=== PATIENT | male | born 1965 | race African-American/Black ===

== ENCOUNTER 2016-11-06 03:35 | Emergency (ER) | payer OTHER ==
[~2016-11-06] VITALS: Ht 180.3 cm; Wt 117.0 kg
[~2016-11-06 03:35] MED LIST: ALBU2.5V13; ASPI-1079 PO; ATOR20TA PO; HYDR-2510; IBUP-1510 PO; METH-612 PO; QUIN20TA; SIMV20TA6 PO; TRAM150C26 PO
[2016-11-06] MEDS ORDERED: IBUPROFEN 600MG TABLET PO ONE (05:30)
[2016-11-06 05:33] VITALS: BP 172/90
== END 2016-11-06 06:08 | disposition home or self-care (01) ==
LOC: ER 03:35
DX: H60.8X1 Other otitis externa, right ear (principal); J44.9 Chronic obstructive pulmonary disease, unspecified; F17.200 Nicotine dependence, unspecified, uncomplicated; I10 Essential (primary) hypertension; Z79.82 Long term (current) use of aspirin; Z98.890 Other specified postprocedural states
CPT/HCPCS: 99283

== ENCOUNTER 2017-08-19 00:35 | Emergency (ER) | payer OTHER ==
[~2017-08-19] VITALS: Ht 180.3 cm; Wt 123.0 kg
[~2017-08-19 00:35] MED LIST changes: -IBUP-1510 PO; +IBUP-2030 PO; +TRAM150C25 PO; -TRAM150C26 PO
[2017-08-19] MEDS ORDERED: ALBUTEROL (0.083%) 2.5MG/3ML NEB HHN ONE (02:30)
[2017-08-19] MEDS ORDERED: IPRATROPIUM BROMIDE (0.02%) 0.5MG/2.5ML NEB HHN ONE (02:30)
[2017-08-19 04:30] VITALS: BP 154/96
== END 2017-08-19 04:37 | disposition home or self-care (01) ==
LOC: ER 00:35
DX: J45.901 Unspecified asthma with (acute) exacerbation (principal); F17.210 Nicotine dependence, cigarettes, uncomplicated; E11.9 Type 2 diabetes mellitus without complications; I10 Essential (primary) hypertension; J98.11 Atelectasis; E78.00 Pure hypercholesterolemia, unspecified; J44.9 Chronic obstructive pulmonary disease, unspecified; Z98.890 Other specified postprocedural states; Z79.82 Long term (current) use of aspirin; Z79.899 Other long term (current) drug therapy
CPT/HCPCS: 71045; 94640; 99284; J7611; Z7610

== ENCOUNTER 2018-08-30 22:34 | Emergency (ER) | payer OTHER ==
[~2018-08-30] VITALS: Ht 180.3 cm; Wt 123.0 kg
[2018-08-31] MEDS ORDERED: IPRATROPIUM BROMIDE (0.02%) 0.5MG/2.5ML NEB HHN STA (00:41)
[2018-08-31] MEDS ORDERED: ALBUTEROL (0.083%) 2.5MG/3ML NEB HHN STA (00:41)
[2018-08-31] MEDS ORDERED: METHYLPREDNISOLONE SOD SUCC 125 MG/2 ML VIAL IM STA (00:41)
[2018-08-31 02:10] VITALS: BP 163/69
== END 2018-08-31 02:55 | disposition home or self-care (01) ==
LOC: ER 22:34
DX: J44.1 Chronic obstructive pulmonary disease with (acute) exacerbation (principal); I10 Essential (primary) hypertension; E11.9 Type 2 diabetes mellitus without complications; F17.210 Nicotine dependence, cigarettes, uncomplicated
CPT/HCPCS: 71045; 93005; 94640; 96372; 99283; J2930; J7611

== ENCOUNTER 2021-02-20 21:19 | Emergency (ER) | payer OTHER ==
[~2021-02-20] VITALS: Ht 182.9 cm; Wt 118.0 kg
[~2021-02-20 21:19] MED LIST changes: -HYDR-2510; +HYDR50TA; -METH-612 PO; +METH-653 PO; +SIMV-43 PO; -SIMV20TA6 PO
[2021-02-20 21:53] VITALS: BP 143/76
== END 2021-02-21 00:08 | disposition left against medical advice (07) ==
LOC: ER 21:19
DX: F60.0 Paranoid personality disorder (principal); R00.0 Tachycardia, unspecified; Z53.21 Procedure and treatment not carried out due to patient leaving prior to being seen by health care provider
CPT/HCPCS: 93005